=== PATIENT | female | born 1970 ===

== ENCOUNTER 2022-03-25 00:06 | Emergency (ER) | payer SELFPAY ==
[2022-03-25 00:20] VITALS: BP 150/100
[2022-03-25] MEDS ORDERED: NITROGLYCERIN 0.4 MG TAB SUBL SL PRN (00:28)
[2022-03-25] MEDS ORDERED: MORPHINE 2 MG/1 ML INJ IV ONE (00:28)
--- NOTE | 2022-03-25 00:34 | Emergency Department Report ---
ED General Adult HPI - General Chief complaint: Chest Pain Stated complaint: SHASHA/CHEST PAIN Time Seen by Provider: 03/25/22 00:22 Source: patient, EMS Mode of arrival: Stretcher Limitations: No Limitations - History of Present Illness Initial comments: This is a 51 year old female with medical history hypertension and also stroke came in today with concerns of chest pain which according to patient is daughter this past Wednesday morning. Patient states the tightness sensation that is localized nonradiating. States the only thing that makes it worse is when she breathes. Nothing seems to make it better. According patient she has never had this in the past. Patient states she feels her heart pounding. Patient stated that she used to be a smoker but not currently. Patient said that she has a family history of myocardial infarction less than 65 years old which is her mother. Patient denies any other discomfort. Patient denies fever chill night sweat dizziness blurred vision lightheadedness headache tinnitus ear pain runny nose sore throat loss of taste loss smell short of breath cough abdominal pain nausea vomiting diarrhea constipation joint pain muscle pain calf discomfort new rash and heat or cold intolerance. According to the EMS patient was at [facility] today but she left A. On the right to here by EMS patient have received 1 sublingual nitro and also aspirin. - Related Data Previous Rx's Medication Instructions Recorded Last Taken Type amLODIPine 10 mg PO DAILY 15 Days #15 tab 03/25/22 Unknown Rx Allergies Allergy/AdvReac Type Severity Reaction Status Date / Time No Known Allergies Allergy Unverified 03/25/22 00:21 ED Review of Systems ROS: Stated complaint: SHASHA/CHEST PAIN Other details as noted in HPI Comment: All other systems reviewed and negative Constitutional: no symptoms reported, see HPI Eyes: as per HPI ENT: as per HPI Respiratory: no symptoms reported, see HPI Cardiovascular: as per HPI Endocrine: no symptoms reported, see HPI Gastrointestinal: as per HPI Musculoskeletal: as per HPI Skin: as per HPI Neurological: as per HPI Psychiatric: as per HPI Hematological/Lymphatic: as per HPI ED Past Medical Hx - Past Medical History Previous Medical History?: Yes Hx Hypertension: Yes Hx CVA: Yes - Medications Home Medications: Home Medications Medication Instructions Recorded Confirmed Last Taken Type amLODIPine 10 mg PO DAILY 15 Days #15 tab 03/25/22 Unknown Rx ED Physical Exam - General Limitations: No Limitations General appearance: alert, in no apparent distress - Head Head exam: Present: atraumatic, normocephalic, normal inspection - Eye Eye exam: Present: normal appearance, PERRL, EOMI Pupils: Present: normal accommodation - ENT ENT exam: Present: normal exam - Neck Neck exam: Present: normal inspection, full ROM - Respiratory Respiratory exam: Present: normal lung sounds bilaterally - Cardiovascular Cardiovascular Exam: Present: regular rate, normal rhythm, normal heart sounds - GI/Abdominal GI/Abdominal exam: Present: soft - Extremities Exam Extremities exam: Present: normal inspection, full ROM - Back Exam Back exam: Present: normal inspection, full ROM - Neurological Exam Neurological exam: Present: alert, oriented X3, CN II-XII intact - Psychiatric Psychiatric exam: Present: normal affect, normal mood - Skin Skin exam: Present: intact, normal color, other (no lower extremity swelling ) ED Course Vital Signs 03/25/22 03/25/22 00:08 00:20 Temperature 98 F 97.3 F L Pulse Rate 102 H Respiratory 16 16 Rate Blood Pressure 150/100 [Right] O2 Sat by Pulse 99 Oximetry - Reevaluation(s) Reevaluation #1: 03/25/22 01:55 DDIMER HIGH; TROP NORMAL; BNP STILL NOT BACK YET. I WILL ORDER CTPA STAT. 03/25/22 02:51 CTPA UNREMARKABLE; NO PE. I WILL REPEAT TROPONIN. ED Medical Decision Making - Lab Data Result diagrams: 03/25/22 00:30 03/25/22 00:30 - EKG Data -: EKG Interpreted by Me EKG shows normal: sinus rhythm Rate: normal - EKG Data When compared to previous EKG there are: no significant change Interpretation: no acute changes 03/25/22 00:44 EKG AT 0030: SINUS RHYTHM AT 94 BPM; BIATRIAL ENLARGEMENT AND LVH. NO ST ELEVATION OR DEPRESSION; NO WELLEN WAVES. - Radiology Data Radiology results: report reviewed, image reviewed - Medical Decision Making Patient further work-up in the emergency room was unremarkable. However, she was informed that her D-dimer is elevated but there is no pulmonary embolism. Patient also denies calf discomfort therefore highly doubt deep venous thrombosis. Patient requests amlodipine refill which I will going to do. I have informed patient to make a follow-up appoint with primary care provider to be seen within 3 days for further outpatient evaluation of her elevated D-dimer and patient understood. Critical care attestation.: If time is entered above; I have spent that time in minutes in the direct care of this critically ill patient, excluding procedure time. ED Disposition Clinical Impression: Non-cardiac chest pain, Elevated d-dimer, Medication refill Disposition: 01 HOME / SELF CARE / HOMELESS Is pt being admited?: No Does the pt Need Aspirin: No Condition: Stable Instructions: Nonspecific Chest Pain, Adult Additional Instructions: YOUR WORK UP IN THE EMERGENCY ROOM WAS UNREMARKABLE; NO MYOCARDIAL INFRACTION OR PULMONARY EMBOLISM. HOWEVER, MAKE A FOLLOW UP APPOINTMENT WITH YOUR PRIMARY CARE PROVIDER TO BE SEEN WITHIN 3 DAYS FOR FURTHER EVALUATION OF YOUR ELEVATED D-DIMER. Prescriptions: amLODIPine 10 mg PO DAILY 15 Days #15 tab Forms: Work/School Release Form(ED) Time of Disposition: 06:31
--- NOTE | 2022-03-25 00:55 | XRay Report ---
CHEST 1 VIEW INDICATION / CLINICAL INFORMATION: CP. FINDINGS: SUPPORT DEVICES: None. HEART / MEDIASTINUM: Borderline enlarged cardiac silhouette. LUNGS / PLEURA: Slight increased pulmonary vascularity bilaterally suggestive of mild underlying card iac congestion Signer Name: Shahid Humphrey MD Signed: 03/25/2022 12:50 AM Workstation Name: [id number]
[2022-03-25] MEDS ORDERED: HYDROmorphone 0.5 MG/0.5 ML INJ IV ONE (01:11)
[2022-03-25 01:15] LABS: Creatine Kinase MB 2.9 ng/mL (0.0-4.0)
[2022-03-25 01:18] LABS: Alanine Aminotransferase 9 units/L (7-56); BUN/Creatinine Ratio 14; Blood Urea Nitrogen 14 mg/dL (7-17); Calcium 8.8 mg/dL (8.4-10.2); Hemolysis Index 5
[2022-03-25 01:34] LABS: Hematocrit 41.4 % (30.3-42.9); Hemoglobin 13.7 gm/dl (10.1-14.3); Mean Corpuscular HGB Conc 33 % (30-34); Mean Corpuscular Volume 89 fl (79-97); Platelet Count 169 K/mm3 (140-440); Red Blood Count 4.65 M/mm3 (3.65-5.03); Red Cell Distribution Width 13.5 % (13.2-15.2)
[2022-03-25 01:44] LABS: INR 0.92 (0.87-1.13); Partial Thromboplastin Time 24.7 Sec. (24.2-36.6)
[2022-03-25 02:12] LABS: Chol/HDL Ratio 2.73 %
--- NOTE | 2022-03-25 02:40 | Cat Scan Report ---
CTA CHEST WITH IV CONTRAST INDICATION: PLEURITIC CHEST PAIN; dyspnea; DDIMER HIGH. TECHNIQUE: Axial CT images were obtained through the chest after injection of 100 mL Omnipaque 350 IV contrast. 3 plane MIP reconstructions were produced. All CT scans at this location are performed using CT dose reduction for ALARA by means of automated exposure control. COMPARISON: None available. FINDINGS: PULMONARY ARTERIES: Extensive respiratory motion artifact limits the exam. No obvious pulmonary throm boemboli identified within the limits of the exam.. AORTA AND ARTERIES: No acute abnormality. MEDIASTINUM: Mild cardiomegaly. LUNGS: No suspicious consolidation, nodule or mass. No pneumothorax or pleural effusion. ADDITIONAL FINDINGS: None. UPPER ABDOMEN: No acute findings. BONES: No significant osseous abnormality. IMPRESSION: 1. No CT evidence for pulmonary embolism within the limits of the exam. 2. Mild cardiomegaly Signer Name: Shahid Humphrey MD Signed: 03/25/2022 2:36 AM Workstation Name: [id number]
[2022-03-25 04:42] LABS: Color,Urine Straw (Yellow)
[2022-03-25 04:43] LABS: RBC,Urine < 1.0 /HPF (0.0-6.0); WBC,Urine < 1.0 /HPF (0.0-6.0)
--- NOTE | 2022-03-25 18:11 | Electrocardiograph Report ---
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
== END 2022-03-25 06:56 | disposition home or self-care (01) ==
LOC: EDBD → ED 00:06
DX: R07.89 Other chest pain (principal); Z76.0 Encounter for issue of repeat prescription; R79.89 Other specified abnormal findings of blood chemistry; I10 Essential (primary) hypertension; Z79.899 Other long term (current) drug therapy
CPT/HCPCS: 36415; 71045; 71275; 80053; 80061; 81001; 82550; 82553; 83690; 83735; 83880; 84484; 85027; 85379; 85610; 85730; 93005; 96374; 99285; J1170; Q9967